=== PATIENT | female | born 1955 | race Hispanic/Latino ===

== ENCOUNTER 2016-07-07 06:49 | Day surgery (SDC) | payer OTHER ==
[2016-07-07 07:18] VITALS: BMI 30.9
[2016-07-07] MEDS ORDERED: Midazolam 2 MG/2 ML VIAL ONE (09:02)
[2016-07-07] MEDS ORDERED: Propofol 10 mg/ml Inj (20 ML) ONE (09:02)
[2016-07-07] MEDS ORDERED: cefTRIAXone (Rocephin) 1 gm Inj ONE (09:22)
[2016-07-07] MEDS ORDERED: Iohexol 300 10 ML ONE (09:23)
[2016-07-07] MEDS ORDERED: Iohexol 240 200 ML IJ ONE ×2 (09:33→09:40)
[2016-07-07] MEDS ORDERED: cefTRIAXone (Rocephin) 1 gm Inj IM ONE (09:35)
[2016-07-07] MEDS ORDERED: Lactated Ringer's 1,000 ML IV ONE (09:40)
[2016-07-07 10:24] VITALS: RESP 18
[2016-07-07 11:10] VITALS: BP 142/88; PULSE 73; TEMP 97.5; O2SAT 96
--- NOTE | 2016-07-07 12:07 | DS ---
This patient came in today for elective evaluation of the bladder with a cystogram and a cystoscopy. She underwent an uneventful procedure. In recovery, she is doing well. She will be discharged home . No specific medication. She will be followed up in the office within a week's time. Peace Tatum MD cc: 48 TT: 07/07/2016 11:28:30 mn
--- NOTE | 2016-07-07 16:53 | RAD ---
PROCEDURE: Fluoroscopy up to 1 hr. HISTORY: Cystography COMPARISON: None TECHNIQUE: Standard protocol for this study/examination. FINDINGS: Submitted images from the current procedure: 5.0 IMPRESSION: Less than 1 hr fluoroscopic time utilized during performance of the procedure.
--- NOTE | 2016-07-08 08:49 | OP ---
PROCEDURE DATE: 07/07/2016 PREOPERATIVE DIAGNOSES: Recurrent urinary tract infection, status post bladder surgery. POSTOPERATIVE DIAGNOSES: Recurrent urinary tract infection, status post bladder surgery. PROCEDURES PERFORMED: Cystogram followed by a cystoscopy. The patient was placed on the operating table in dorsal lithotomy position. A #18 two-way Patel cath eter was inserted. I first measured a postvoid residual which was around 20 mL. At that time, I the n filled the bladder to capacity at about 300 mL of Cystografin material. Once the patient was feeli ng fullness, I clamped the tube, asked the patient to cough in Valsalva. There was no significant mo bility of the ____ bladder neck, and at this time I then removed the catheter and asked the patient t o cough in Valsalva and she did not generate any significant loss of urine. At this time, then she w as given general anesthesia. The bladder then was emptied and I did a formal cystoscopy, evaluated t he entire bladder wall. There was no evidence of any unusual lesions. Ureteral orifices were normal ly placed and effluxing clear. There was no evidence of any urethral findings related to her potenti ally prior bladder surgery. In the end, I found just basically a negative cystoscopy. Once this inf ormation was gathered, the cystoscope was removed. The patient was taken from the operating room in good condition. Peace Tatum MD cc: 48 TT: 07/07/2016 11:27:45 or
== END 2016-07-07 11:42 | disposition home or self-care (01) ==
LOC: H.OPSURG 06:49
PROVIDERS: ATTEND Urology
DX: R33.8 Other retention of urine (principal)

== ENCOUNTER 2016-11-03 07:55 | Day surgery (SDC) | payer OTHER ==
[2016-10-29 11:16] VITALS: BMI 33.6
[2016-11-03] MEDS ORDERED: Lactated Ringer's 1,000 ML IV ONE (08:25)
[2016-11-03] MEDS ORDERED: Propofol 10 mg/ml Inj (20 ML) ONE (12:07)
[2016-11-03] MEDS ORDERED: HYDROmorphone 0.5 mg/0.5 ml ISec IVP PRN (12:28)
[2016-11-03 12:48] VITALS: RESP 20
[2016-11-03 13:34] VITALS: PULSE 66
[2016-11-03 13:42] VITALS: BP 147/90; TEMP 97.8
[2016-11-03 14:02] VITALS: O2SAT 98
--- NOTE | 2016-11-19 15:03 | OP ---
PROCEDURE DATE: 11/03/2016 PREOPERATIVE DIAGNOSIS: Urethral stenosis. POSTOPERATIVE DIAGNOSIS: Urethral stenosis. PROCEDURE PERFORMED: Cystoscopy with urethral dilatation under anesthesia. DESCRIPTION OF PROCEDURE: Patient was placed on the operating room table in dorsal lithotomy position, given IV sedation. At this time, the urethra was quite restricted in size. I used female dilators to dilate from the size 14-Cymro to a maximum of a size 28-Cymro. With that left in place for several minutes of dwell time, I then performed the cystoscopy using a #21 cystoscope. In the bladder, there was no unusual findings. Ureteral orifices were clearly identified. The bladder wall was completely smooth. There were no unusual findings in the bladder. I then removed the cystoscope and reinserted the 28-Cymro dilator and left that there for another 5 minutes for dilatation and following this, then the patient was taken from the operating room in good condition. Peace Tatum MD
--- NOTE | 2016-11-20 05:09 | DS ---
DATE OF DISCHARGE: 11/03/2016 HOSPITAL COURSE: The patient came in for elective cystoscopy with urethral dilatation under anesthesia. The patient underwent an uneventful procedure. In the recovery room, she is stable. She will be sent home and given instructions for followup in my office. Restrictions on diet and activity were described to the patient preoperatively. Again, she will follow up in the office within a week for reevaluation. Peace Tatum MD
== END 2016-11-03 14:05 | disposition home or self-care (01) ==
LOC: H.OPSURG 07:55
PROVIDERS: ATTEND Urology
DX: N35.9 Urethral stricture, unspecified (principal); Z87.891 Personal history of nicotine dependence; M19.90 Unspecified osteoarthritis, unspecified site
CPT/HCPCS: 52285; J1170; J1885; J2001; J2704; J3010; J7120